=== PATIENT | male | born 1990 | race Two or more races ===

== ENCOUNTER 2022-02-22 08:00 | Outpatient (CLI) | payer OTHER | END 2022-02-22 08:05 | disposition home or self-care (01) | LOC: PPH VACUNA 08:00 | PROVIDERS: ATTEND Emergency Medicine Pediatric Emergency Medicine | DX: Z23 Encounter for immunization (principal) ==

== ENCOUNTER 2022-05-19 12:29 | Emergency (ER) | payer OTHER ==
[~2022-05-19] VITALS: Ht 167.6 cm; Wt 67.6 kg
[2022-05-19] MEDS ORDERED: FLONASE ALLERG9.9 ML NASAL (17:49)
[2022-05-19] MEDS ORDERED: MUCINEX DM ER1 EAC1 PO (17:49)
[2022-05-19] MEDS ORDERED: SINUS RINSE ST1 EACH NASAL (17:49)
== END 2022-05-19 18:35 | disposition home or self-care (01) ==
LOC: ER 12:29
DX: B34.8 Other viral infections of unspecified site (principal)

== ENCOUNTER 2022-07-21 10:56 | Emergency (ER) | payer OTHER ==
[~2022-07-21] VITALS: Ht 167.6 cm; Wt 65.8 kg
[~2022-07-21 10:56] MED LIST: FLONASE ALLERG9.9 ML NASAL; MUCINEX DM ER1 EAC1 PO; SINUS RINSE ST1 EACH NASAL
== END 2022-07-21 13:31 | disposition home or self-care (01) ==
LOC: ER 10:56
DX: H10.89 Other conjunctivitis (principal)

== ENCOUNTER 2023-02-01 | Outpatient (CLI) | payer OTHER | END 2023-02-01 00:15 | disposition home or self-care (01) | LOC: PPH VACUNA | PROVIDERS: ATTEND Emergency Medicine Pediatric Emergency Medicine | DX: Z23 Encounter for immunization (principal) ==

== ENCOUNTER 2023-07-05 09:29 | Emergency (ER) | payer OTHER ==
[~2023-07-05] VITALS: Ht 167.6 cm; Wt 65.8 kg
[2023-07-05 13:54] LABS: HEMATOCRIT 48.4 % (39.0-48.0); HEMOGLOBIN 16.7 g/dL (13-16.00); MEAN CELL VOLUME 80.2 fL (80.0-100.00); MEAN CORPUSCULAR HEMOGLOBIN 27.6 pg (27.00-32.0); MEAN CORPUSCULAR HGB CONC 34.5 g/dl (32.0-36.0); PLATELET COUNT 262 K/uL (150-450); RED BLOOD COUNT 6.04 M/uL (4.00-6.00); RED CELL DISTRIBUTION WIDTH 13.3 % (11.5-14.5)
== END 2023-07-05 15:26 | disposition home or self-care (01) ==
LOC: ER 09:30
PROVIDERS: Emergency Medicine
DX: J06.9 Acute upper respiratory infection, unspecified (principal); Z20.822 Contact with and (suspected) exposure to COVID-19

== ENCOUNTER 2023-07-06 17:03 | Outpatient (CLI) | payer OTHER ==
[2023-07-06 17:40] LABS: HEMATOCRIT 45.1 % (39.0-48.0); HEMOGLOBIN 15.6 g/dL (13-16.00); MEAN CELL VOLUME 79.8 fL (80.0-100.00); MEAN CORPUSCULAR HEMOGLOBIN 27.6 pg (27.00-32.0); MEAN CORPUSCULAR HGB CONC 34.6 g/dl (32.0-36.0); PLATELET COUNT 227 K/uL (150-450); RED BLOOD COUNT 5.65 M/uL (4.00-6.00); RED CELL DISTRIBUTION WIDTH 13.3 % (11.5-14.5)
== END 2023-07-06 17:12 | disposition home or self-care (01) ==
LOC: LAB 17:03
PROVIDERS: Emergency Medicine; ATTEND General Practice
DX: J06.9 Acute upper respiratory infection, unspecified (principal); R50.9 Fever, unspecified

== ENCOUNTER 2023-08-22 00:11 | Emergency (ER) | payer OTHER ==
[~2023-08-22] VITALS: Ht 167.6 cm; Wt 65.8 kg
[2023-08-22] MEDS ORDERED: GUAIFENESIN/DEXTROMETHORPHAN 100 MG/5 ML ML PO STA (01:33)
[2023-08-22] MEDS ORDERED: ACETAMINOPHEN 500 MG GEL..CAP PO STA (01:34)
[2023-08-22] MEDS ORDERED: DIPHENHYDRAMINE HCL 12.5 MG/5 ML BLIST.PACK PO STA (01:34)
[2023-08-22 02:08] LABS: HEMOGLOBIN 14.9 g/dL (13-16.00); MEAN CELL VOLUME 80.4 fL (80.0-100.00); MEAN CORPUSCULAR HEMOGLOBIN 28.5 pg (27.00-32.0); MEAN CORPUSCULAR HGB CONC 35.4 g/dl (32.0-36.0); PLATELET COUNT 257 K/uL (150-450); RED BLOOD COUNT 5.23 M/uL (4.00-6.00); RED CELL DISTRIBUTION WIDTH 13.1 % (11.5-14.5)
[2023-08-22] MEDS ORDERED: ZITHROMAX500 MG PO (03:34)
[2023-08-22] MEDS ORDERED: ZYNCOF 20-400120 ML PO (03:34)
[2023-08-22] MEDS ORDERED: PHENAGIL TABLE1 EACH PO (03:34)
[2023-08-22] MEDS ORDERED: DOLOGESIC-DF 51 EACH PO (03:34)
== END 2023-08-22 03:46 ==
LOC: ER 00:11
PROVIDERS: General Practice
DX: J06.9 Acute upper respiratory infection, unspecified (principal); B34.9 Viral infection, unspecified; Z20.822 Contact with and (suspected) exposure to COVID-19